=== PATIENT | female | born 1945 | race Caucasian/White ===

== ENCOUNTER → 2016-05-13 | Outpatient (CLI) | payer MEDICARE, OTHER ==
[~2016-05-13] MED LIST: ACETAMINOPHEN-H1 TA2 PO; ACIDOPHILUS1 EAC2 PO; ALBUTEROL2.5 MG/3 M INH; ALLERGY MEDICAT25 MG PO; ASPIRIN E.C. 8181 M1 PO; CALCIUM 600600 M2 PO; CARDIZEM SR 60M60 MG PO; CARDIZEM120 M1 PO; CINNAMON500 MG PO; COLESTID 1GM1 G PO; FOSAMAX 70MG TA70 MG PO; HCTZ 25MG25 MG PO; HYGROTON 2525 MG/TAB PO; LEVOTHYROXIN0.112 MG PO; LEVOTHYROXINE0.2 MG PO; LEVOTHYROXINE100 MC1 PO; LISINOPRIL20 MG PO; LISINOPRIL5 MG PO; MIRALAX17 GM/DOSE PO; NIACIN500 MG PO; OMEGA-3 FISH1200 MG PO; OMEGA-31 SGL PO; OMEPRAZOLE D/R20 MG PO; OMNICEF 300MG300 MG PO; ONE DAILY1 TA1 PO; PAIN RELIEVER500 M2 PO; PROBIOTIC FORMU1 CA1 PO; PROBIOTIC1 EACH PO; PYRIDIUM200 M1 PO; RITUXAN 10100 MG/10 IV; SEPTRA DS 800 M1 TA1 PO; ULTRAM50 M1 PO; VITAMIN D32000 I1 PO; VITAMIN D5000 UNIT PO; VITAMIN E400 UNI1 PO; WARFARIN SOD5 MG PO; ZYLOPRIM 300MG300 MG PO
== END ==
LOC: RAD 13:57
DX: Z51.81 Encounter for therapeutic drug level monitoring (principal); Z79.01 Long term (current) use of anticoagulants; M17.12 Unilateral primary osteoarthritis, left knee; S89.92XA Unspecified injury of left lower leg, initial encounter

== ENCOUNTER → 2016-05-15 | Outpatient (CLI) | payer MEDICARE, OTHER, BC | LOC: RAD 11:48 | DX: M79.662 Pain in left lower leg (principal); I48.0 Paroxysmal atrial fibrillation ==

== ENCOUNTER → 2016-05-24 | Outpatient (CLI) | payer MEDICARE, OTHER, BC ==
[2016-05-24 15:15] VITALS: BP 155/76
== END ==
LOC: AMSURD 15:03
DX: I48.0 Paroxysmal atrial fibrillation (principal); T14.8 Other injury of unspecified body region

== ENCOUNTER → 2016-09-12 | Outpatient (CLI) | payer MEDICARE, OTHER, BC ==
[2016-05-24 15:15] VITALS: BP 155/76
== END ==
LOC: LAB 10:12
DX: N39.8 Other specified disorders of urinary system (principal); N30.00 Acute cystitis without hematuria

== ENCOUNTER → 2016-11-19 | Outpatient (CLI) | payer MEDICARE, OTHER ==
[2016-05-24 15:15] VITALS: BP 155/76
== END ==
LOC: LAB 12:47
DX: E03.9 Hypothyroidism, unspecified (principal)

== ENCOUNTER → 2017-06-04 | Outpatient (CLI) | payer MEDICARE, OTHER ==
[2016-05-24 15:15] VITALS: BP 155/76
== END ==
LOC: LAB 16:07
DX: N39.0 Urinary tract infection, site not specified (principal); Z88.1 Allergy status to other antibiotic agents; Z88.0 Allergy status to penicillin; Z88.8 Allergy status to other drugs, medicaments and biological substances

== ENCOUNTER → 2017-09-03 | Outpatient (CLI) | payer MEDICARE, OTHER ==
[2016-05-24 15:15] VITALS: BP 155/76
== END ==
LOC: LAB 10:47
PROVIDERS: Family Medicine
DX: E03.9 Hypothyroidism, unspecified (principal)

== ENCOUNTER → 2017-11-26 | Outpatient (CLI) | payer MEDICARE, OTHER ==
[2016-05-24 15:15] VITALS: BP 155/76
== END ==
LOC: LAB 14:17
DX: R35.1 Nocturia (principal)

== ENCOUNTER → 2018-04-01 | Outpatient (CLI) | payer MEDICARE, OTHER ==
[2016-05-24 15:15] VITALS: BP 155/76
== END ==
LOC: LAB 12:14
PROVIDERS: Family Medicine
DX: I48.91 Unspecified atrial fibrillation (principal); M1A.9XX0 Chronic gout, unspecified, without tophus (tophi); E03.9 Hypothyroidism, unspecified; R73.9 Hyperglycemia, unspecified

== ENCOUNTER → 2018-06-16 | Outpatient (CLI) | payer MEDICARE, OTHER ==
[2016-05-24 15:15] VITALS: BP 155/76
[~2018-06-16] MED LIST changes: +ALPRAZOLAM0.25 MG PO; +ATROVENT I0.2 MG/1 M IH; +PRINIVIL5 M1 PO; +TESSALON PERLE100 M1 PO; +WARFARIN SODIUM3 MG PO
== END ==
LOC: RAD 14:51
DX: J92.9 Pleural plaque without asbestos (principal); R05 Cough; R06.00 Dyspnea, unspecified; R91.8 Other nonspecific abnormal finding of lung field

== ENCOUNTER 2018-06-19 15:49 | Emergency (ER) | payer MEDICARE, OTHER ==
[~2018-06-19] VITALS: Ht 175.3 cm; Wt 130.9 kg
[~2018-06-19 15:49] MED LIST changes: -ALPRAZOLAM0.25 MG PO; -ATROVENT I0.2 MG/1 M IH; -PRINIVIL5 M1 PO; -TESSALON PERLE100 M1 PO; -WARFARIN SODIUM3 MG PO
[2018-06-19] MEDS ORDERED: TESSALON PERLE100 M1 PO (16:28)
[2018-06-19] MEDS ORDERED: ATROVENT I0.2 MG/1 M IH (16:29)
[2018-06-19] MEDS ORDERED: LEVOTHYROXINE100 MC1 PO (16:30)
[2018-06-19] MEDS ORDERED: ALPRAZOLAM0.25 MG PO (16:31)
[2018-06-19] MEDS ORDERED: PRINIVIL5 M1 PO (16:31)
[2018-06-19] MEDS ORDERED: WARFARIN SODIUM3 MG PO (16:31)
[2018-06-19 17:26] LABS: EOS # 0.1 (0.04-0.40); EOS % 0.5 % (1.0-5.0); HEMATOCRIT 40.1 % (37.0-47.0); HEMOGLOBIN 12.3 g/dL (12.5-16.0); LYMPH# 1.4 (1.50-4.00); MEAN CELL VOLUME 95 fl (78-100); MEAN CORPUSCULAR HEMOGLOBIN 29 pg (27-31); MEAN CORPUSCULAR HGB CONC 31 g/dL (33-37); MEAN PLATELET VOLUME 11.8 fl (7.4-10.4); MONO # 0.8 (0.20-0.80); NEU # 8.5 (1.40-6.50); PLATELET COUNT 229 K/mm3 (130-400); RED BLOOD COUNT 4.23 M/mm3 (4.10-5.30); RED CELL DISTRIBUTION WIDTH 14.3 % (11.5-14.5); WHITE BLOOD COUNT 10.7 K/mm3 (4.8-10.8)
[2018-06-19 17:31] LABS: ALBUMIN 3.9 g/dL (3.5-5.0); CALCIUM 9.2 mg/dL (8.4-10.2); POTASSIUM 3.9 mmol/L (3.6-5.0); TOTAL BILIRUBIN 0.4 mg/dL (0.2-1.3); TOTAL PROTEIN 6.3 g/dL (6.3-8.2)
[2018-06-19 17:35] LABS: PROTHROMBIN TIME 23.7 SECONDS (9.0-12.0)
[2018-06-19 18:00] LABS: TROPONIN-I < 0.03 ng/mL (0.00-0.06)
[2018-06-19 22:36] VITALS: BP 148/84
== END 2018-06-19 22:36 | disposition short-term general hospital (02) ==
LOC: ED 15:49
PROVIDERS: Nurse Practitioner Primary Care
DX: R06.09 Other forms of dyspnea (principal); R05 Cough; I48.91 Unspecified atrial fibrillation; I13.0 Hypertensive heart and chronic kidney disease with heart failure and stage 1 through stage 4 chronic kidney disease, or unspecified chronic kidney disease; N18.3 Chronic kidney disease, stage 3 (moderate); I50.9 Heart failure, unspecified; E78.5 Hyperlipidemia, unspecified; K21.9 Gastro-esophageal reflux disease without esophagitis; E66.01 Morbid (severe) obesity due to excess calories; E03.9 Hypothyroidism, unspecified; M31.7 Microscopic polyangiitis; Z98.51 Tubal ligation status; Z79.01 Long term (current) use of anticoagulants
CPT/HCPCS: Q9967

== ENCOUNTER → 2018-06-29 | Outpatient (CLI) | payer MEDICARE, OTHER ==
[~2018-06-29] VITALS: Ht 175.3 cm; Wt 132.7 kg
[~2018-06-29] MED LIST changes: +ALPRAZOLAM0.25 MG PO; +ATROVENT I0.2 MG/1 M IH; +FUROSEMIDE20 MG PO; +PRINIVIL5 M1 PO; +TESSALON PERLE100 M1 PO; +WARFARIN SODIUM3 MG PO
[2018-06-29 14:35] VITALS: BP 150/70
== END ==
LOC: LAB 14:02
DX: J43.9 Emphysema, unspecified (principal); J20.8 Acute bronchitis due to other specified organisms; M31.7 Microscopic polyangiitis; R04.0 Epistaxis; E03.9 Hypothyroidism, unspecified